=== PATIENT | male | born 1960 | race Caucasian/White ===

== ENCOUNTER 2016-07-22 14:02 | Outpatient (CLI) | payer OTHER | END 2016-07-22 14:03 | disposition home or self-care (01) | DX: G47.33 Obstructive sleep apnea (adult) (pediatric) (principal); G47.61 Periodic limb movement disorder ==

== ENCOUNTER 2017-06-20 08:05 | Outpatient (CLI) | payer OTHER ==
[2017-06-20 08:46] LABS: BASOPHILS % (AUTO) 0.6 %; EOSINOPHILS # (AUTO) 0.2 10^3/uL (0.0-0.7); HCT - HEMATOCRIT 42.9 % (42.0-52.0); LYMPHOCYTES # (AUTO) 1.8 10^3/uL (1.5-3.5); LYMPHOCYTES % (AUTO) 29.2 %; MEAN CORPUSCULAR HEMOGLOBIN 31.7 pg (27.0-31.0); MEAN CORPUSCULAR HGB CONC 34.9 g/dL (32.0-36.0); MEAN CORPUSCULAR VOLUME 90.7 fL (80.0-94.0); MEAN PLATELET VOLUME 8.2 fL (7.4-11.4); MONOCYTES # (AUTO) 0.6 10^3/uL (0.0-1.0); MONOCYTES % (AUTO) 10.2 %; NEUTROPHILS # (AUTO) 3.5 10^3/uL (1.5-6.6); NUCLEATED RED BLOOD CELLS AUTO 0.1 /100WBC; RED BLOOD COUNT 4.73 10^6/uL (4.70-6.10); RED CELL DISTRIBUTION WIDTH 12.7 % (12.0-15.0); UNCORRECTED WHITE BLOOD COUNT 6.2 x10^3/uL; WHITE BLOOD COUNT 6.2 x10^3/uL (4.8-10.8)
[2017-06-20 08:59] LABS: ALBUMIN/GLOBULIN RATIO 1.5 (1.0-2.2); BILIRUBIN,TOTAL 1.1 mg/dL (0.2-1.0); BUN - BLOOD UREA NITROGEN 31 mg/dL (6-20); CALCIUM 9.2 mg/dL (8.5-10.3); CARBON DIOXIDE - CO2 22 mmol/L (21-32); CHLORIDE 104 mmol/L (101-111); CHOL/HDL RATIO 3.4 (<5.0); CHOLESTEROL 210 mg/dL; CREATININE 1.1 mg/dL (0.6-1.2); GFR - MDRD 69 (>89); GLUCOSE 97 mg/dL (70-100); HDL CHOLESTEROL 61 mg/dL; LDL/HDL RATIO 2.1 (<3.6); POTASSIUM 4.1 mmol/L (3.5-5.0); SODIUM 135 mmol/L (135-145); TOTAL PROTEIN 7.1 g/dL (6.7-8.2); TRIGLYCERIDES 101 mg/dL; VLDL CHOLESTEROL 20 mg/dL
[2017-06-20 09:06] LABS: HEMOGLOBIN A1C 0.52 g/dL
== END 2017-06-20 08:06 | disposition home or self-care (01) ==
LOC: LAB 08:05
PROVIDERS: ATTEND Family Medicine
DX: Z00.00 Encounter for general adult medical examination without abnormal findings (principal); Z12.5 Encounter for screening for malignant neoplasm of prostate
CPT/HCPCS: 36415; 80053; 80061; 83036; 84153; 84443; 85025

== ENCOUNTER 2017-08-10 12:50 | Emergency (ER) | payer OTHER ==
[2017-08-10 12:55] VITALS: BP 127/80
--- NOTE | 2017-08-10 14:06 | ED Physician Documentation ---
PD HPI SKIN - Stated complaint Stated Complaint: RASHES ON FACE/HEAD - Chief complaint Chief Complaint: Wound - History obtained from History obtained from: Patient - History of Present Illness Timing - onset: How many days ago (2) Timing - duration: Days (2) Timing - details: Gradual onset, Still present Location: Scalp Quality / character: Itchy, Vesicular, Swelling Contributing factors: Other (denies any specific stress) Similar symptoms before: Has not had sx before Recently seen: Other (The patient is getting Botox for blepharospasm) - Additional information Additional information: 57-year-old male has noticed a rash in his scalp over the past day and a half. He has some itching with it and he is worried about shingles. Review of Systems Constitutional: denies: Fever, Chills, Myalgias, Weight Loss Eyes: denies: Decreased vision Ears: denies: Ear pain Nose: denies: Congestion Throat: denies: Sore throat Cardiac: denies: Chest pain / pressure Respiratory: denies: Dyspnea, Cough GI: denies: Nausea, Vomiting, Diarrhea Skin: reports: Rash PD PAST MEDICAL HISTORY - Past Medical History Past Medical History: No - Past Surgical History Past Surgical History: No - Present Medications Home Medications: Ambulatory Orders Medication Instructions Recorded Confirmed Valacyclovir HCl [Valacyclovir] 1,000 mg PO TID #21 tablet 08/10/17 - Allergies Allergies/Adverse Reactions: Allergies Allergy/AdvReac Type Severity Reaction Status Date / Time No Known Drug Allergies Allergy Verified 12/29/15 07:15 - Social History Does the pt smoke?: No Smoking Status: Never smoker Does the pt drink ETOH?: Yes ETOH Use: Wine, Beer Does the pt have substance abuse?: No - Immunizations Immunizations are current?: Yes - POLST Patient has POLST: No PD ED PE NORMAL - Vitals Vital signs reviewed: Yes (normal ) - General General: Alert and oriented X 3, No acute distress, Well developed/nourished - HEENT HEENT: PERRL, EOMI, Other (There are multiple vesiculations some with some crusting over the scalp in the distribution of a single nerve. This is on the right side of the scalp all above the eyebrow) - Neck Neck: Supple, no meningeal sign - Respiratory Respiratory: No respiratory distress - Derm Derm: Normal color, Warm and dry, Other (Rash of shingles is present in the right scalp) Results - Vitals Vitals: Vital Signs - 24 hr 08/10/17 12:53 Temperature 36 C L Heart Rate 62 Respiratory 18 Rate Blood Pressure 127/80 O2 Saturation 98 Oxygen O2 Source Room air PD MEDICAL DECISION MAKING - ED course Complexity details: considered differential, d/w patient ED course: 57-year-old male with a rash in his scalp consistent with zoster is placed on valacyclovir. Departure - Departure Disposition: 01 Home, Self Care Clinical Impression: Shingles Qualifiers: Herpes zoster complications: without complications Qualified Code(s): B02.9 - Zoster without complications Instructions: ED Shingles Follow-Up: Faustina Brower PA-C [Primary Care Provider] - Prescriptions: Valacyclovir HCl [Valacyclovir] 1,000 mg PO TID #21 tablet Discharge Date/Time: 08/10/17 14:17
== END 2017-08-10 14:17 | disposition home or self-care (01) ==
LOC: ED 12:50
DX: B02.9 Zoster without complications (principal)
CPT/HCPCS: 99283

== ENCOUNTER 2017-10-06 16:45 | Outpatient (CLI) | payer OTHER ==
[2017-10-06 17:08] LABS: BASOPHILS # (AUTO) 0.1 10^3/uL (0.0-0.1); BASOPHILS % (AUTO) 1.3 %; EOSINOPHILS # (AUTO) 0.2 10^3/uL (0.0-0.7); EOSINOPHILS % (AUTO) 3.3 %; HGB - HEMOGLOBIN 14.8 g/dL (14.0-18.0); LYMPHOCYTES # (AUTO) 2.7 10^3/uL (1.5-3.5); LYMPHOCYTES % (AUTO) 38.1 %; MEAN CORPUSCULAR HEMOGLOBIN 30.5 pg (27.0-31.0); MEAN CORPUSCULAR HGB CONC 33.5 g/dL (32.0-36.0); MEAN PLATELET VOLUME 7.7 fL (7.4-11.4); MONOCYTES # (AUTO) 0.6 10^3/uL (0.0-1.0); MONOCYTES % (AUTO) 8.7 %; NEUTROPHILS # (AUTO) 3.5 10^3/uL (1.5-6.6); NEUTROPHILS % (AUTO) 48.6 %; PLT - PLATELET COUNT 219 10^3/uL (130-450); RED BLOOD COUNT 4.85 10^6/uL (4.70-6.10); RED CELL DISTRIBUTION WIDTH 12.8 % (12.0-15.0); WHITE BLOOD COUNT 7.1 x10^3/uL (4.8-10.8)
[2017-10-06 17:12] LABS: CALCIUM 8.9 mg/dL (8.5-10.3)
== END 2017-10-06 16:46 | disposition home or self-care (01) ==
LOC: LAB 16:45
PROVIDERS: ATTEND Physician Assistant Medical
DX: J45.990 Exercise induced bronchospasm (principal); R53.83 Other fatigue
CPT/HCPCS: 36415; 80048; 85025

== ENCOUNTER 2018-03-11 15:22 | Outpatient (CLI) | payer OTHER | END 2018-03-11 15:23 | disposition home or self-care (01) | LOC: SC 15:22 | PROVIDERS: ATTEND Nurse Practitioner Family | DX: G47.33 Obstructive sleep apnea (adult) (pediatric) (principal) | CPT/HCPCS: 99212; 99214 ==

== ENCOUNTER 2018-06-02 20:34 | Outpatient (CLI) | payer OTHER | END 2018-06-02 20:35 | disposition home or self-care (01) | LOC: SC 20:34 | PROVIDERS: ATTEND Internal Medicine Pulmonary Disease | DX: G47.33 Obstructive sleep apnea (adult) (pediatric) (principal); G47.61 Periodic limb movement disorder | CPT/HCPCS: 95810 ==

== ENCOUNTER 2018-07-22 08:08 | Outpatient (CLI) | payer OTHER ==
[2018-07-22 08:27] LABS: BASOPHILS % (AUTO) 0.4 %; EOSINOPHILS # (AUTO) 0.2 10^3/uL (0.0-0.7); EOSINOPHILS % (AUTO) 2.5 %; HGB - HEMOGLOBIN 15.2 g/dL (14.0-18.0); LYMPHOCYTES % (AUTO) 30.3 %; MEAN CORPUSCULAR HEMOGLOBIN 31.5 pg (27.0-31.0); MEAN CORPUSCULAR HGB CONC 34.9 g/dL (32.0-36.0); MEAN CORPUSCULAR VOLUME 90.5 fL (80.0-94.0); MEAN PLATELET VOLUME 7.5 fL (7.4-11.4); MONOCYTES # (AUTO) 0.6 10^3/uL (0.0-1.0); NEUTROPHILS # (AUTO) 3.7 10^3/uL (1.5-6.6); NEUTROPHILS % (AUTO) 56.8 %; PLT - PLATELET COUNT 228 10^3/uL (130-450); RED BLOOD COUNT 4.81 10^6/uL (4.70-6.10); RED CELL DISTRIBUTION WIDTH 12.7 % (12.0-15.0); WHITE BLOOD COUNT 6.5 x10^3/uL (4.8-10.8)
[2018-07-22 09:06] LABS: ALBUMIN 4.2 g/dL (3.2-5.5); ALBUMIN/GLOBULIN RATIO 1.2 (1.0-2.2); ALKALINE PHOSPHATASE 46 IU/L (42-121); ALT ALANINE AMINOTRANSFERASE 26 IU/L (10-60); AST ASPARTATE AMINOTRANSFERASE 26 IU/L (10-42); BILIRUBIN,TOTAL 0.7 mg/dL (0.2-1.0); BUN - BLOOD UREA NITROGEN 18 mg/dL (6-20); CALCIUM 9.5 mg/dL (8.5-10.3); CARBON DIOXIDE - CO2 22 mmol/L (21-32); CHLORIDE 102 mmol/L (101-111); CHOL/HDL RATIO 3.6 (<5.0); CHOLESTEROL 222 mg/dL; CREATININE 1.1 mg/dL (0.6-1.2); GFR - MDRD 69 (>89); GLUCOSE 104 mg/dL (70-100); HDL CHOLESTEROL 62 mg/dL; LDL CHOLESTEROL,CALCULATED 139 mg/dL; LDL/HDL RATIO 2.2 (<3.6); SODIUM 133 mmol/L (135-145); TOTAL PROTEIN 7.6 g/dL (6.7-8.2); VLDL CHOLESTEROL 21 mg/dL
[2018-07-22 09:20] LABS: THYROID STIMULATING HORMONE 1.17 uIU/mL (0.34-5.60)
== END 2018-07-22 08:09 | disposition home or self-care (01) ==
LOC: LAB 08:08
PROVIDERS: ATTEND Physician Assistant Medical
DX: Z00.00 Encounter for general adult medical examination without abnormal findings (principal); R53.83 Other fatigue
CPT/HCPCS: 36415; 80053; 80061; 82306; 82607; 83721; 84443; 85025

== ENCOUNTER 2018-11-11 14:55 | Outpatient (CLI) | payer OTHER | END 2018-11-11 14:56 | disposition home or self-care (01) | LOC: SC 14:55 | PROVIDERS: ATTEND Nurse Practitioner Family | DX: G47.33 Obstructive sleep apnea (adult) (pediatric) (principal); R53.83 Other fatigue | CPT/HCPCS: 99212; 99214 ==

== ENCOUNTER 2022-10-29 08:06 | Outpatient (CLI) | payer OTHER ==
[2022-10-29 08:32] LABS: BASOPHILS % (AUTO) 0.5 %; EOSINOPHILS # (AUTO) 0.2 10^3/uL (0.0-0.7); EOSINOPHILS % (AUTO) 3.2 %; HCT - HEMATOCRIT 46.9 % (42.0-52.0); HGB - HEMOGLOBIN 16.1 g/dL (14.0-18.0); LYMPHOCYTES # (AUTO) 2.9 10^3/uL (1.5-3.5); LYMPHOCYTES % (AUTO) 44.3 %; MEAN CORPUSCULAR HGB CONC 34.3 g/dL (32.0-36.0); MEAN CORPUSCULAR VOLUME 90.2 fL (80.0-94.0); MEAN PLATELET VOLUME 9.6 fL (7.4-11.4); MONOCYTES # (AUTO) 0.6 10^3/uL (0.0-1.0); MONOCYTES % (AUTO) 8.9 %; NEUTROPHILS # (AUTO) 2.9 10^3/uL (1.5-6.6); NEUTROPHILS % (AUTO) 42.9 %; PLT - PLATELET COUNT 254 10^3/uL (130-450); RED CELL DISTRIBUTION WIDTH 12.2 % (12.0-15.0); WHITE BLOOD COUNT 6.6 x10^3/uL (4.8-10.8)
[2022-10-29 08:46] LABS: ALBUMIN 4.3 g/dL (3.2-5.5); ALBUMIN/GLOBULIN RATIO 1.4 (1.0-2.2); ALKALINE PHOSPHATASE 49 IU/L (42-121); ALT ALANINE AMINOTRANSFERASE 22 IU/L (10-60); AST ASPARTATE AMINOTRANSFERASE 23 IU/L (10-42); BILIRUBIN,TOTAL 1.1 mg/dL (0.2-1.0); BUN - BLOOD UREA NITROGEN 23 mg/dL (6-20); CALCIUM 9.5 mg/dL (8.5-10.3); CARBON DIOXIDE - CO2 23 mmol/L (21-32); CHLORIDE 106 mmol/L (101-111); CHOLESTEROL 198 mg/dL; CREATININE 1.1 mg/dL (0.6-1.2); GFR - MDRD 68 (>89); GLUCOSE 100 mg/dL (70-100); HDL CHOLESTEROL 66 mg/dL; LDL CHOLESTEROL,CALCULATED 114 mg/dL; LDL/HDL RATIO 1.7 (<3.6); POTASSIUM 4.2 mmol/L (3.5-5.0); SODIUM 140 mmol/L (135-145); TOTAL PROTEIN 7.4 g/dL (6.7-8.2); TRIGLYCERIDES 90 mg/dL; VLDL CHOLESTEROL 18 mg/dL
[2022-10-29 08:58] LABS: THYROID STIMULATING HORMONE 1.46 uIU/mL (0.34-5.60)
[2022-10-30 08:10] LABS: HIV SCREEN 4TH GENERATION Non Reactive (Non Reactive)
== END 2022-10-29 08:07 | disposition home or self-care (01) ==
LOC: LAB 08:06
PROVIDERS: ATTEND Hospitalist
DX: Z11.4 Encounter for screening for human immunodeficiency virus [HIV] (principal); Z13.0 Encounter for screening for diseases of the blood and blood-forming organs and certain disorders involving the immune mechanism; Z13.1 Encounter for screening for diabetes mellitus; Z13.220 Encounter for screening for lipoid disorders; Z13.29 Encounter for screening for other suspected endocrine disorder; Z12.5 Encounter for screening for malignant neoplasm of prostate
CPT/HCPCS: 36415; 80053; 80061; 83721; 84153; 84443; 85025; 87389

== ENCOUNTER 2023-09-16 09:51 | Outpatient (CLI) | payer OTHER ==
[2023-09-16 10:07] LABS: BASOPHILS # (AUTO) 0.1 10^3/uL (0.0-0.1); BASOPHILS % (AUTO) 0.8 %; EOSINOPHILS # (AUTO) 0.4 10^3/uL (0.0-0.7); EOSINOPHILS % (AUTO) 6.3 %; HCT - HEMATOCRIT 46.9 % (42.0-52.0); HGB - HEMOGLOBIN 15.6 g/dL (14.0-18.0); LYMPHOCYTES # (AUTO) 2.5 10^3/uL (1.5-3.5); LYMPHOCYTES % (AUTO) 38.4 %; MEAN CORPUSCULAR HEMOGLOBIN 30.6 pg (27.0-31.0); MEAN CORPUSCULAR HGB CONC 33.3 g/dL (32.0-36.0); MEAN PLATELET VOLUME 9.4 fL (7.4-11.4); MONOCYTES # (AUTO) 0.7 10^3/uL (0.0-1.0); MONOCYTES % (AUTO) 10.4 %; NEUTROPHILS # (AUTO) 2.9 10^3/uL (1.5-6.6); NEUTROPHILS % (AUTO) 44.1 %; PLT - PLATELET COUNT 236 10^3/uL (130-450); WHITE BLOOD COUNT 6.5 x10^3/uL (4.8-10.8)
[2023-09-16 10:25] LABS: ALBUMIN 4.2 g/dL (3.2-5.5); ALBUMIN/GLOBULIN RATIO 1.5 (1.0-2.2); ALKALINE PHOSPHATASE 56 IU/L (42-121); ALT ALANINE AMINOTRANSFERASE 22 IU/L (10-60); AST ASPARTATE AMINOTRANSFERASE 19 IU/L (10-42); BILIRUBIN,TOTAL 0.5 mg/dL (0.2-1.0); BUN - BLOOD UREA NITROGEN 22 mg/dL (6-20); CALCIUM 9.7 mg/dL (8.5-10.3); CARBON DIOXIDE - CO2 26 mmol/L (21-32); CHLORIDE 105 mmol/L (101-111); CHOL/HDL RATIO 3.8 (<5.0); CHOLESTEROL 236 mg/dL; CREATININE 1.1 mg/dL (0.6-1.3); GFR - MDRD 67 (>89); GLUCOSE 99 mg/dL (74-104); HDL CHOLESTEROL 62 mg/dL; LDL CHOLESTEROL,CALCULATED 152 mg/dL; LDL/HDL RATIO 2.5 (<3.6); POTASSIUM 4.6 mmol/L (3.5-4.5); SODIUM 136 mmol/L (135-145); TRIGLYCERIDES 109 mg/dL (48-352); VLDL CHOLESTEROL 22 mg/dL
[2023-09-16 10:36] LABS: THYROID STIMULATING HORMONE 1.73 uIU/mL (0.34-5.60)
[2023-09-16 10:42] LABS: ESTIMATED AVERAGE GLUCOSE 94 mg/dL (70-100); HEMOGLOBIN A1c% 4.9 % (4.27-6.07)
== END 2023-09-16 09:52 | disposition home or self-care (01) ==
LOC: LAB 09:51
PROVIDERS: ATTEND Family Medicine
DX: R53.83 Other fatigue (principal); R73.9 Hyperglycemia, unspecified; Z12.5 Encounter for screening for malignant neoplasm of prostate
CPT/HCPCS: 36415; 80053; 80061; 83036; 83721; 84153; 84443; 85025